=== PATIENT | male | born 1970 | race Caucasian/White ===

== ENCOUNTER → 2016-10-02 | Outpatient (CLI) | payer BC, OTHER ==
[~2016-10-02] MED LIST: EFFSR75 PO; PRLSR20 PO
[2016-10-02 17:47] LABS: BASO % 0.6 %; BASO ABS # 0.05 K/uL (0-0.2); COMPLETE YES; EOS % 1.1 %; HEMATOCRIT 46.8 % (42-52); IG% 0.6 %; LYMPH % 28.4 %; LYMPH ABS # 2.26 K/uL (1.2-3.4); MEAN CELL VOLUME 87.5 fL (80-100); MEAN CORPUSCULAR HEMOGLOBIN 29.2 pg (25-34); MEAN CORPUSCULAR HGB CONC 33.3 g/dl (32-36); MEAN PLATELET VOLUME 11.2 fL (7.4-10.4); MONO % 8.2 %; NEUT % 61.1 %; PLATELET COUNT 185 K/uL (130-400); RED BLOOD COUNT 5.35 M/uL (4.7-6.1); WHITE BLOOD COUNT 7.97 K/uL (4.8-10.8)
[2016-10-02 17:55] LABS: ALT/SGPT 34 U/L (12-78); AST/SGOT 16 U/L (15-37); BLOOD UREA NITROGEN 10 mg/dl (7-18); BUN/CREATININE RATIO 8.9 (10-20); CALCIUM 8.7 mg/dl (8.5-10.1); CARBON DIOXIDE 30 mmol/L (21-32); CHLORIDE 105 mmol/L (98-107); GLUCOSE 111 mg/dl (70-99); POTASSIUM 3.7 mmol/L (3.5-5.1); SODIUM 139 mmol/L (136-145)
[2016-10-02 18:04] LABS: ALB/GLOB RATIO 0.9 (0.9-2); ALKALINE PHOSPHATASE 92 U/L (45-117); CHOLESTEROL 213 mg/dl (0-200); CHOLESTEROL/HDL RATIO 5.2; HDL CHOLESTEROL 41 mg/dl; LDL CHOLESTEROL CALCULATED 121 mg/dl; TRIGLYCERIDES 257 mg/dl (0-150); VERY LOW DENSITY LIPOPROT CALC 51 mg/dl
== END | disposition home or self-care (01) ==
LOC: C.LABMFLN 13:48
PROVIDERS: ATTEND Family Medicine
DX: F32.9 Major depressive disorder, single episode, unspecified (principal); E78.5 Hyperlipidemia, unspecified

== ENCOUNTER 2020-04-07 17:25 | Inpatient (IN) ==
--- NOTE | 2020-04-07 17:55 | Emergency Department Note ---
Impression & Plan Depression with suicidal ideation, Excessive anger ED Provider Note DeliveredProvider: Shady Pittman MD DATE OF SERVICE: 04/07/2020 CHIEF COMPLAINT: Depressed, anger HISTORY OF PRESENT ILLNESS: Patient is a 49-year-old gentleman history of diabetes, hyperlipidemia, depression presenting here today complaining of some worsening depression and anger issues over the past several weeks. Patient is a work his outpatient providers at [facility] regarding this and started last week Topamax. Patient states he has been doing some virtual counseling with them limited secondary to the pandemic. Patient states he lives at home with his and her 2 children 1 of whom is autistic. States children really pushes buttons and he got very angry today and made some verbal threats against them but then felt quite bad about this and had thoughts of wanting to harm himself. Patient describes thoughts of wanting to go and hang himself and thought to be better if he was not around. Came here for help. Patient states he is a history of inpatient psychiatric stays once here and once at [facility] several years ago. Patient states he believes he is in medications readjusted and wishes for inpatient treatment. He denies any significant physical pain at this time. States has not been sleeping the best but has been taking his medicines otherwise. Denies any hallucinations. Denies drug or alcohol use history. He denies a history of physical violence against others. Patient states he has attempted suicide several times in the past. He did not wish to divulge further information regarding this. REVIEW OF SYSTEMS: A total of 10 review of systems was obtained and negative except as stated above in the HPI. PAST MEDICAL HISTORY: As noted above MEDICATIONS: Reviewed home medication SOCIAL HISTORY: Denies drug use. Non-smoker, PHYSICAL EXAM: GENERAL: alert and oriented sitting in chair in room somewhat tearful with mask in place Head: normocephalic and atraumatic EYES: No injection, discharge or icterus. NECK: Trachea midline. LUNGS: Airway patent. No retractions. Breath sounds clear HEART: Regular rate and rhythm. No chest wall tenderness SKIN: Acyanotic, warm, dry, without rashes EXTREMITIES: Without swelling, tenderness or deformity NEUROLOGICAL: No focal deficits. No aphasia. No facial droop or slurred speech Psych: Patient endorses significant depression and is tearful during the exam. Flattened affect. Does states she had thoughts of wanting to harm himself including a plan to possibly hang himself. States in the past he has tried to harm himself but not recently. Patient denies any hallucinations. Patient denies current thoughts of going to harm anybody but states he has verbalized some threats earlier today. Patient's laboratory studies reviewed. Differential includes Mood disorder, infection, hypoglycemia, electrolyte abnormalities, cardiac sources, intracerebral event, toxicologic, trauma, neurologic, as well as other pathologies. IMPRESSION/MEDICAL DECISION MAKING: Patient presents tearful depression with plan to harm himself. Recent anger outburst causing stress. Basic labs were completed. CBC without significant a nemia or leukocytosis. Borderline hyponatremia 135. Hypokalemia of 3.2 and repleted with some oral potassium here. Function. Negative rapid Covid. Negative alcohol level, Tylenol level, and salicylate level. Urinalysis that signs of infection. TSH just above normal but free T4 within normal limits. He is wishing for inpatient treatment and believes he may need medication readjustment. Seen in conjunction with the skilled nursing case manager. Do have concerns regarding his safety with his report of which is to not be alive and plan to hang himself. Referrals for inpatient treatment will be made. Patient currently voluntary but I do believe involuntary grounds exist. Signed out pending bed placement. DIAGNOSIS: Depression with suicidal ideation, anger DISPOSITION: Signed out pending acceptance to inpatient mental health unit Past Med/Surg History Medical History (Updated 04/07/20 @ 17:55 by Shady Pittman M.D.) Acid reflux disease Benign essential hypertension Depression Diabetes mellitus Hyperlipidemia Surgical History History of esophagogastroduodenoscopy (EGD) Family History Sister Asthma Grandfather Diabetes Social History Smoking Status: Never smoker Hx Alcohol Use: Yes Hx Substance Use: No Preferred Language: Swedish Visual Impairment: No Limitations Hearing Ability: Normal marital status: Current Living Situation: Spouse and Family current occupational status: employed Feels Safe at Home: Yes Childhood Exposure to Second-Hand Smoke: Yes Physical Activity Frequency: Daily Seatbelt Use: never Sunscreen Use: Yes Allergies Allergies Allergy/AdvReac Type Severity Reaction Status Date / Time No Known Allergies Allergy Verified 04/07/20 18:04 Home Meds Home Medications Medication Instructions Recorded Confirmed bupropion HCl 300 mg PO DAILY 04/07/20 04/07/20 omeprazole 40 mg PO DAILY 04/07/20 04/07/20 topiramate [Topamax] 25 mg PO DAILY 04/07/20 04/07/20 Previous Rx's Medication Instructions Recorded blood-glucose meter #1 ea 10/11/18 lancets 33 gauge #100 ea 10/11/18 blood sugar diagnostic #100 ea 06/30/19 rosuvastatin 10 mg tablet 10 mg PO HS #90 tab 08/07/19 ropinirole 0.25 mg tablet 0.5 mg PO HS #180 tab 09/12/19 losartan 100 mg tablet 100 mg PO DAILY #90 tab 11/26/19 hydrochlorothiazide 25 mg tablet 25 mg PO DAILY #90 tab 01/31/20 Results & Data (ED) Vital Signs Vital Signs - 24 hr 04/07/20 17:26 04/07/20 19:18 Temperature 36.6 C Temperature Source Temporal Artery Scan Pulse Rate 95 H Pulse Rate [Apical] 89 Pulse Rhythm [Apical] Regular Pulse Strength [Apical] Normal Respiratory Rate 20 15 Respiratory Effort / Characteristics Non-Labored Non-Labored Spontaneous Respiratory Depth Normal Normal Respiratory Pattern Regular Regular Blood Pressure 148/90 H Blood Pressure [Right Arm] 132/92 Blood Pressure Mean 109 Blood Pressure Mean [Right Arm] 105 Blood Pressure Position Sitting Blood Pressure Position [Right Arm] Sitting Pulse Oximetry 94 98 Oxygen Delivery Method Room Air Room Air Sepsis Recent Fever Within 48 Hours No Sepsis New/Unexplained Change in Mental Status No Sepsis Action Taken by Nursing No Action Required Laboratory Data Result diagrams: 04/07/20 18:10 04/07/20 18:10 Lab Results 04/07/20 04/07/20 04/07/20 Range/Units 18:10 18:10 18:10 WBC 9.94 (4.8-10.8) K/uL RBC 5.60 (4.7-6.1) M/uL Hgb 16.2 (14.0-18.0) g/dL Hct 47.5 (42-52) % MCV 84.8 (80-100) fL MCH 28.9 (25-34) pg MCHC 34.1 (32-36) g/dL RDW Std Deviation 42.5 (36.4-46.3) fL RDW Coeff of Obed 13.7 (11.5-14.5) % Plt Count 216 (130-400) K/uL MPV 10.9 H (7.4-10.4) fL Immature Gran % (Auto) 0.2 % Neut % (Auto) 75.9 % Lymph % (Auto) 15.2 % Ulster % (Auto) 7.8 % Eos % (Auto) 0.6 % Baso % (Auto) 0.3 % Neut # (Auto) 7.54 H (1.4-6.5) K/uL Lymph # (Auto) 1.51 (1.2-3.4) K/uL Ulster # (Auto) 0.78 H (0.11-0.59) K/uL Eos # (Auto) 0.06 (0-0.5) K/uL Baso # (Auto) 0.03 (0-0.2) K/uL Immature Gran # (Auto) 0.02 (0.00-0.02) K/uL Sodium 135 L (136-145) mmol/L Potassium 3.2 L (3.5-5.1) mmol/L Chloride 101 (98-107) mmol/L Carbon Dioxide 25 (21-32) mmol/L Anion Gap 9.0 (3-11) BUN 20 H (7-18) mg/dl Creatinine 1.29 (0.6-1.4) mg/dl Est Cr Clr Drug Dosing 101.1 ml/min Est GFR ( Amer) 75.5 Est GFR (Non-Af Amer) 65.1 BUN/Creatinine Ratio 15.5 (10-20) Glucose 130 H (70-99) mg/dl Calcium 9.2 (8.5-10.1) mg/dl Total Bilirubin 0.6 (0.2-1) mg/dl AST 23 (15-37) U/L ALT 35 (12-78) U/L Alkaline Phosphatase 97 (45-117) U/L Total Protein 7.7 (6.4-8.2) gm/dl Albumin 3.8 (3.4-5.0) gm/dl Globulin 3.9 (2.5-4.0) gm/dl Albumin/Globulin Ratio 1.0 (0.9-2) TSH 4.510 H (0.300-4.500) uIu/ml Free T4 0.96 (0.8-1.6) ng/dl Urine Color Urine Appearance (Clear) Urine pH (4.5-7.5) Ur Specific Hammett (1.000-1.030) Urine Protein (Negative) Urine Glucose (UA) (Negative) Urine Ketones (Negative) Urine Blood (Negative) Urine Nitrite (Negative) Urine Bilirubin (Negative) Urine Urobilinogen (Negative) Ur Leukocyte Esterase (Negative) Salicylates < 1.7 L (2.8-20) mg/dl Urine Opiates Screen (Neg) Ur Methadone, Qual (Neg) Acetaminophen < 2 L (10-30) ug/ml Urine Barbiturates (Neg) Ur Phencyclidine (PCP) (Neg) U Amphetamin/Meth Scrn (Neg) MDMA (Ecstasy) Screen (Neg) U Benzodiazepines Scrn (Neg) Ur Cocaine Metabolite (Neg) U Marijuana (THC) Screen (Neg) Ethyl Alcohol mg/dL (0-3) mg/dl SARS-CoV-2 Ag (Rapid) (Negative) 04/07/20 04/07/20 04/07/20 Range/Units 18:10 19:05 19:05 WBC (4.8-10.8) K/uL RBC (4.7-6.1) M/uL Hgb (14.0-18.0) g/dL Hct (42-52) % MCV (80-100) fL MCH (25-34) pg MCHC (32-36) g/dL RDW Std Deviation (36.4-46.3) fL RDW Coeff of Obed (11.5-14.5) % Plt Count (130-400) K/uL MPV (7.4-10.4) fL Immature Gran % (Auto) % Neut % (Auto) % Lymph % (Auto) % Ulster % (Auto) % Eos % (Auto) % Baso % (Auto) % Neut # (Auto) (1.4-6.5) K/uL Lymph # (Auto) (1.2-3.4) K/uL Ulster # (Auto) (0.11-0.59) K/uL Eos # (Auto) (0-0.5) K/uL Baso # (Auto) (0-0.2) K/uL Immature Gran # (Auto) (0.00-0.02) K/uL Sodium (136-145) mmol/L Potassium (3.5-5.1) mmol/L Chloride (98-107) mmol/L Carbon Dioxide (21-32) mmol/L Anion Gap (3-11) BUN (7-18) mg/dl Creatinine (0.6-1.4) mg/dl Est Cr Clr Drug Dosing ml/min Est GFR ( Amer) Est GFR (Non-Af Amer) BUN/Creatinine Ratio (10-20) Glucose (70-99) mg/dl Calcium (8.5-10.1) mg/dl Total Bilirubin (0.2-1) mg/dl AST (15-37) U/L ALT (12-78) U/L Alkaline Phosphatase (45-117) U/L Total Protein (6.4-8.2) gm/dl Albumin (3.4-5.0) gm/dl Globulin (2.5-4.0) gm/dl Albumin/Globulin Ratio (0.9-2) TSH (0.300-4.500) uIu/ml Free T4 (0.8-1.6) ng/dl Urine Color Yellow Urine Appearance Clear (Clear) Urine pH 5.0 (4.5-7.5) Ur Specific Hammett 1.027 (1.000-1.030) Urine Protein Negative (Negative) Urine Glucose (UA) Negative (Negative) Urine Ketones Negative (Negative) Urine Blood Negative (Negative) Urine Nitrite Negative (Negative) Urine Bilirubin Negative (Negative) Urine Urobilinogen Negative (Negative) Ur Leukocyte Esterase Negative (Negative) Salicylates (2.8-20) mg/dl Urine Opiates Screen Neg (Neg) Ur Methadone, Qual Neg (Neg) Acetaminophen (10-30) ug/ml Urine Barbiturates Neg (Neg) Ur Phencyclidine (PCP) Neg (Neg) U Amphetamin/Meth Scrn Neg (Neg) MDMA (Ecstasy) Screen Pos H (Neg) U Benzodiazepines Scrn Neg (Neg) Ur Cocaine Metabolite Neg (Neg) U Marijuana (THC) Screen Neg (Neg) Ethyl Alcohol mg/dL < 3.0 (0-3) mg/dl SARS-CoV-2 Ag (Rapid) (Negative) 04/07/20 Range/Units Unknown WBC (4.8-10.8) K/uL RBC (4.7-6.1) M/uL Hgb (14.0-18.0) g/dL Hct (42-52) % MCV (80-100) fL MCH (25-34) pg MCHC (32-36) g/dL RDW Std Deviation (36.4-46.3) fL RDW Coeff of Obed (11.5-14.5) % Plt Count (130-400) K/uL MPV (7.4-10.4) fL Immature Gran % (Auto) % Neut % (Auto) % Lymph % (Auto) % Ulster % (Auto) % Eos % (Auto) % Baso % (Auto) % Neut # (Auto) (1.4-6.5) K/uL Lymph # (Auto) (1.2-3.4) K/uL Ulster # (Auto) (0.11-0.59) K/uL Eos # (Auto) (0-0.5) K/uL Baso # (Auto) (0-0.2) K/uL Immature Gran # (Auto) (0.00-0.02) K/uL Sodium (136-145) mmol/L Potassium (3.5-5.1) mmol/L Chloride (98-107) mmol/L Carbon Dioxide (21-32) mmol/L Anion Gap (3-11) BUN (7-18) mg/dl Creatinine (0.6-1.4) mg/dl Est Cr Clr Drug Dosing ml/min Est GFR ( Amer) Est GFR (Non-Af Amer) BUN/Creatinine Ratio (10-20) Glucose (70-99) mg/dl Calcium (8.5-10.1) mg/dl Total Bilirubin (0.2-1) mg/dl AST (15-37) U/L ALT (12-78) U/L Alkaline Phosphatase (45-117) U/L Total Protein (6.4-8.2) gm/dl Albumin (3.4-5.0) gm/dl Globulin (2.5-4.0) gm/dl Albumin/Globulin Ratio (0.9-2) TSH (0.300-4.500) uIu/ml Free T4 (0.8-1.6) ng/dl Urine Color Urine Appearance (Clear) Urine pH (4.5-7.5) Ur Specific Hammett (1.000-1.030) Urine Protein (Negative) Urine Glucose (UA) (Negative) Urine Ketones (Negative) Urine Blood (Negative) Urine Nitrite (Negative) Urine Bilirubin (Negative) Urine Urobilinogen (Negative) Ur Leukocyte Esterase (Negative) Salicylates (2.8-20) mg/dl Urine Opiates Screen (Neg) Ur Methadone, Qual (Neg) Acetaminophen (10-30) ug/ml Urine Barbiturates (Neg) Ur Phencyclidine (PCP) (Neg) U Amphetamin/Meth Scrn (Neg) MDMA (Ecstasy) Screen (Neg) U Benzodiazepines Scrn (Neg) Ur Cocaine Metabolite (Neg) U Marijuana (THC) Screen (Neg) Ethyl Alcohol mg/dL (0-3) mg/dl SARS-CoV-2 Ag (Rapid) Negative (Negative) Administered Medications Discontinued Medications Potassium Chloride (Potassium Chloride Crtab 20 Meq Tabcr) 20 meq PO NOW STA Stop: 04/07/20 18:55 Last Admin: 04/07/20 19:08 Dose: 20 meq Documented by: [id number] Discharge Plan Visit Data Chief Complaint: Mental Health Evaluation Stated Complaint: MENTAL HEALTH EVAL - ANGER ED Provider: Shady Pittman Discharge Problem: Depression with suicidal ideation, Excessive anger Forms Stand Alone Forms: [facility], Suicide Prevention Resources Prescriptions Prescriptions: No Action (DME) lancets [OneTouch Delica Plus Lancet] 33 gauge misc See Dose Instructions .ROUTE .MEDSUPPLY Qty: 100 RF: 0 (DME) blood-glucose meter [OneTouch Ultra2 Meter] kit See Dose Instructions .ROUTE .MEDSUPPLY Qty: 1 RF: 0 rosuvastatin 10 mg tablet 10 mg PO HS Qty: 90 RF: 3 ropinirole [Requip] 0.25 mg tablet 0.5 mg PO HS Qty: 180 RF: 1 losartan 100 mg tablet 100 mg PO DAILY Qty: 90 RF: 3 hydrochlorothiazide 25 mg tablet 25 mg PO DAILY Qty: 90 RF: 0 (DME) OneTouch Ultra Blue Test Strip Strip See Dose Instructions .ROUTE .MEDSUPPLY Qty: 100 RF: 3 omeprazole 20 mg capsule,delayed release(DR/EC) 40 mg PO DAILY RF: 0 bupropion HCl 100 mg tablet sustained-release 12 hr 300 mg PO DAILY RF: 0 topiramate [Topamax] 25 mg Tablet 25 mg PO DAILY RF: 0
[2020-04-07 18:21] LABS: Basophils # (auto) 0.03 K/uL (0-0.2); Basophils % (auto) 0.3 %; Eosinophils # (auto) 0.06 K/uL (0-0.5); Eosinophils % (auto) 0.6 %; Hematocrit (blood only) 47.5 % (42-52); Hemoglobin 16.2 g/dL (14.0-18.0); Immature Granulocytes # (auto) 0.02 K/uL (0.00-0.02); Immature Granulocytes % (auto) 0.2 %; Lymphocytes # (auto) 1.51 K/uL (1.2-3.4); Lymphocytes % (auto) 15.2 %; Mean Corpuscular Hemoglobin 28.9 pg (25-34); Mean Corpuscular Hgb Conc 34.1 g/dL (32-36); Mean Corpuscular Volume 84.8 fL (80-100); Mean Platelet Volume 10.9 fL (7.4-10.4); Monocytes # (auto) 0.78 K/uL (0.11-0.59); Monocytes % (auto) 7.8 %; Neutrophils # (auto) 7.54 K/uL (1.4-6.5); Neutrophils % (auto) 75.9 %; Platelet Count 216 K/uL (130-400); RDW Coefficient of Variation 13.7 % (11.5-14.5); RDW Standard Deviation 42.5 fL (36.4-46.3); White Blood Count 9.94 K/uL (4.8-10.8)
[2020-04-07 18:40] LABS: Albumin Level 3.8 gm/dl (3.4-5.0); BUN Creatinine Ratio 15.5 (10-20); Calcium 9.2 mg/dl (8.5-10.1); Creatinine Clr Calc Pharmacy 101.1 ml/min; Est GFR (African American) 75.5; Est GFR (Non-African American) 65.1; Potassium 3.2 mmol/L (3.5-5.1)
[2020-04-07 18:50] LABS: Bilirubin,Total 0.6 mg/dl (0.2-1); Globulin 3.9 gm/dl (2.5-4.0); Thyroid Stimulating Hormone 4.51 uIu/ml (0.300-4.500); Total Protein 7.7 gm/dl (6.4-8.2)
[2020-04-07] MEDS ORDERED: POTASSIUM CHLORIDE CRTAB 20 MEQ TABCR PO STA (18:54)
[2020-04-07 19:03] LABS: T4 Free Thyroxine 0.96 ng/dl (0.8-1.6)
[2020-04-07 19:20] LABS: Salicylate < 1.7 mg/dl (2.8-20)
[2020-04-07 19:21] LABS: Acetaminophen < 2 ug/ml (10-30)
[2020-04-07 19:30] LABS: Appearance Urine Clear (Clear); Bilirubin Urine Negative (Negative); Blood Urine Negative (Negative); Color Urine Yellow; Glucose Urine UA Negative (Negative); Ketones Urine Negative (Negative); Leukocyte Esterase Urine Negative (Negative); Nitrite Urine Negative (Negative); Protein Urine Negative (Negative); Specific Gravity Urine 1.027 (1.000-1.030); Urobilinogen Urine Negative (Negative)
[2020-04-07 19:58] LABS: Amphetamines+Metham, Urine Neg (Neg); Barbiturates, Urine Neg (Neg); Benzodiazepine, Urine Neg (Neg); Cocaine, Urine Neg (Neg); MDMA (Ecstacy), Urine Pos (Neg); Methadone, Urine Neg (Neg); Opiate, Urine Neg (Neg); Phencyclidine, Urine Neg (Neg)
--- NOTE | 2020-04-07 20:36 | Emergency Department Note ---
ED Visit Note 2034: Signout from Dr. Pittman. 49-year-old male presents emergency department for suicidal ideation. Awaiting placement. Medically cleared. 2144:Patient admitted to [facility]. .
[2020-04-07] MEDS ORDERED: hydrOXYzine HCl 25 MG TAB PO PRN ×2 (20:51)
[2020-04-07] MEDS ORDERED: BISMUTH SUBSALICYLATE LIQD 236 ML PO PRN (20:51)
[2020-04-07] MEDS ORDERED: ALUMINUM/MAGNESIUM SUSP 30 ML UDC PO PRN (20:51)
[2020-04-07] MEDS ORDERED: ACETAMINOPHEN 325 MG TAB PO PRN (20:51)
[2020-04-07] MEDS ORDERED: SODIUM CHLORIDE 0.65% NA SOLN 45 ML (OCEAN) PRN (20:51)
[2020-04-07] MEDS ORDERED: MAGNESIUM HYDROXIDE SUSP 30 ML UDC PO PRN (20:51)
[2020-04-07] MEDS ORDERED: ROSUVASTATIN CALCIUM 10 MG TAB PO SCH (22:00)
[2020-04-07] MEDS ORDERED: rOPINIRole HCL 0.25 MG TABLET PO SCH (22:00)
[2020-04-08] MEDS: TRULICITY~ORDER AWAITING ACTION SCH ×2 (00:52→08:11)
[2020-04-08] MEDS ORDERED: NON-FORMULARY MEDICATION (Omeprazole 20 mg capsule,delayed release(DR/EC)) PO SCH (09:00)
[2020-04-08] MEDS: ROSUVASTATIN CALCIUM 10 MG TAB PO SCH (09:02)
[2020-04-08] MEDS: PANTOprazole 40 MG TAB PO SCH (09:02)
[2020-04-08] MEDS: LOSARTAN POTASSIUM 50 MG TAB PO SCH (09:02)
[2020-04-08] MEDS: hydroCHLOROthiazide 25 MG TAB PO SCH (09:02)
[2020-04-08] MEDS: rOPINIRole HCL 0.25 MG TABLET PO SCH (09:02)
[2020-04-08] MEDS: TOPIRAMATE 25 MG TAB PO SCH (09:03)
[2020-04-08] MEDS ORDERED: buPROPion SR 100 MG TABCR PO ONE (12:00)
--- NOTE | 2020-04-08 12:16 | History & Physical ---
Date of Service April 08, 2020 Impression / Recommendations Impression 49 yo male with a history of prior suicidal gestures presents with multiple vegetative symptoms of depression and disrupted sleep with taking Wellbutrin in am on return home from work. He relates significant irritability but endorses no other symptoms suggestive of bipolar depression. (1) Depression with suicidal ideation: The patient was admitted to the [facility] ([facility] unit) on q15 min checks (behavioral with suicide precautions) for safety. The patient will participate in group, recreational, and milieu therapies and will be offered additional individual and family sessions as clinically appropriate. PATRICK for [facility], LM for prescriber to coordinate care. He agreed to start Wellbutrin taper as he only wants to take medication in am before sleep and this may be contributing to sleep fragmentation. 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 Chief Complaint "I've been losing my temper and it makes me feel horrible about myself, like I shouldn't be around". History of Present Illness States that for several weeks he has been more depressed and irritable, not sleeping well. He relates that 8 yo step-son is a "handful" as autistic and won't follow directions. He yelled at him yesterday afternoon and decided to take a drive to calm down at which time he developed suicidal thoughts with a plan to put a belt around his neck. It should be noted that he has done this twice in the past and will hit his head when frustrated. He was seen at [facility] recently and started on topamax in addition to his Wellbutrin. 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 At this point he doesn't feel like anything has been helpful. He does not have a therapist. He notes poor appetite and potassium was low in the ED and was repleted. He continues to feel suicidal. Denies issues at work as doesn't have anger outbursts there. He denies decrease in work performance. He denies history of elevated mood or other behaviors that would suggest royce. He continues to feel hopeless, helpless, and worthless for not being able to control himself. Past Psychiatric History Current Psychiatric Diagnosis: MDD and Anxiety Outpatient Services: Kamlesh at [facility]. Previous Psych Admissions: 2016 [facility], [place] as young adult Do You Have Access To A Gun?: Yes (will need to confirm--had multiple guns last stay with near lethal gesture) History of Previous Suicide Attempt: Yes Describe Attempts in the Past: tied belt around neckX2, Prozac in mouth with gun to head 2016 admit Past Medication Trials: he is not able to recall--2016 H&P relates Paxil was perhaps helpful for a period, Prozac (SI), Effexor XR upon discharge 2015. Wellbutrin "a few months". Allergies Allergy/AdvReac Type Severity Reaction Status Date / Time No Known Allergies Allergy Verified 04/07/20 18:04 Home Medications Medication Instructions Recorded Confirmed Type blood-glucose meter #1 ea 10/11/18 01/31/20 Rx lancets 33 gauge #100 ea 10/11/18 01/31/20 Rx blood sugar diagnostic #100 ea 06/30/19 01/31/20 Rx rosuvastatin 10 mg tablet 10 mg PO HS #90 tab 08/07/19 04/07/20 Rx ropinirole 0.25 mg tablet 0.5 mg PO HS #180 tab 09/12/19 04/07/20 Rx losartan 100 mg tablet 100 mg PO DAILY #90 tab 11/26/19 04/07/20 Rx hydrochlorothiazide 25 mg tablet 25 mg PO DAILY #90 tab 01/31/20 04/07/20 Rx bupropion HCl 200 mg PO DAILY 04/07/20 04/08/20 History dulaglutide [Trulicity] 0.75 mg SUBCUT WK 04/07/20 04/07/20 History omeprazole 40 mg PO DAILY 04/07/20 04/07/20 History topiramate [Topamax] 25 mg PO DAILY 04/07/20 04/07/20 History Family History Family History of: None Alcohol History Hx of Alcohol Use Over the Past 12 Months: No AUDIT Total Score: 0 Smoking Use Have You Smoked or Used Tobacco Products in the Last 30 Days: No Smoking Status: Never smoker Substance History Hx of Prescription Med Misuse Over the Past 12 Months: No Hx of Over the Counter Med Misuse Over the Past 12 Months: No Hx of Inhalent Misuse Over the Past 12 Months: No Hx of Organic Substance Use Over the Past 12 Months: No Hx of Illegal Substances/Street Drug Use Over Past 12 Months: No Problems as a Result of Past Substance Use: None Identified Personal History Living Arrangements: Home (with 2nd and 2 step sons (6 and 8 yo)) Childhood: raised by mother and grandparents, no contact with father, 1 sister Highest Grade Completed: High School Graduate 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 Marital Status: Number Of Children: 2 older adult children, 2 step-children Beliefs That Will Affect Care: None Current Legal Problems: No Hx Legal Problems: No Hx Traumatic Life Events: No Patient History Medical History (Updated 04/07/20 @ 17:55 by Shady Pittman M.D.) Acid reflux disease Benign essential hypertension Depression Diabetes mellitus Hyperlipidemia Surgical History History of esophagogastroduodenoscopy (EGD) Family History Sister Asthma Grandfather Diabetes Social History Smoking Status: Never smoker Hx Alcohol Use: Yes Hx Substance Use: No Preferred Language: Ukrainian Communication Ability: Effective Visual Impairment: No Limitations Hearing Ability: Normal Manager Pe Required: No Beliefs That Will Affect Care: None marital status: Current Living Situation: Spouse and Family current occupational status: employed Feels Safe at Home: Yes Childhood Exposure to Second-Hand Smoke: Yes Physical Activity Frequency: Daily Seatbelt Use: never Sunscreen Use: Yes Assistive Devices: None Review of Systems Review of Systems: All systems reviewed & are unremarkable except as noted in HPI & below Physical Exam Psychiatric: Orientation: alert and cooperative Apperance: appropriately groomed Eye Contact: + poor eye contact Motor Behavior: steady gait and station Speech: normal rate/rhythm/volume of speech Affect: + tearful affect Mood: + depressed mood Thought Process: goal directed thought process Thought Content: reality based without delusions suicidal ideation, denies intent or plan on unit, unable to contract for safety outside of the hospital. Homicidal Thoughts: denies homicidal thoughts Hallucinations: no auditory hallucinations and no visual hallucinations Cognition: recent memory grossly intact, attention grossly intact and language grossly intact Estimated Intelligence: consistent with education level Insight: + limited insight Judgement: + limited judgement Vital Signs (Past 24 Hours): Last Vital Signs Temp 36.8 C 04/08/20 06:30 Pulse 76 04/08/20 06:30 Resp 17 04/08/20 06:30 BP 132/76 04/08/20 06:30 Pulse Ox 95 04/07/20 21:43 Exam Statement: A physical exam was performed in the ED by Dr. Pittman for the purposes of medical clearance. I accept that physical as correct and adequate for the purposes of the inpatient physical exam. Results & Data ([facility]) Laboratory Results Laboratory Results - last 24 hr 04/07/20 04/07/20 04/07/20 18:10 18:10 18:10 WBC 9.94 RBC 5.60 Hgb 16.2 Hct 47.5 MCV 84.8 MCH 28.9 MCHC 34.1 RDW Std Deviation 42.5 RDW Coeff of Obed 13.7 Plt Count 216 MPV 10.9 H Immature Gran % (Auto) 0.2 Neut % (Auto) 75.9 Lymph % (Auto) 15.2 [place] % (Auto) 7.8 Eos % (Auto) 0.6 Baso % (Auto) 0.3 Neut # (Auto) 7.54 H Lymph # (Auto) 1.51 [place] # (Auto) 0.78 H Eos # (Auto) 0.06 Baso # (Auto) 0.03 Immature Gran # (Auto) 0.02 Sodium 135 L Potassium 3.2 L Chloride 101 Carbon Dioxide 25 Anion Gap 9.0 BUN 20 H Creatinine 1.29 Est Cr Clr Drug Dosing 101.1 Est GFR ( Amer) 75.5 Est GFR (Non-Af Amer) 65.1 BUN/Creatinine Ratio 15.5 Glucose 130 H POC Glucose Calcium 9.2 Total Bilirubin 0.6 AST 23 ALT 35 Alkaline Phosphatase 97 Total Protein 7.7 Albumin 3.8 Globulin 3.9 Albumin/Globulin Ratio 1.0 TSH 4.510 H Free T4 0.96 Urine Color Urine Appearance Urine pH Ur Specific Mcleod Urine Protein Urine Glucose (UA) Urine Ketones Urine Blood Urine Nitrite Urine Bilirubin Urine Urobilinogen Ur Leukocyte Esterase Salicylates < 1.7 L Urine Opiates Screen Ur Methadone, Qual Acetaminophen < 2 L Urine Barbiturates Ur Phencyclidine (PCP) U Amphetamin/Meth Scrn Urine MDEA MDMA (Ecstasy) Screen MDMA Urine MDMA U Benzodiazepines Scrn Ur Cocaine Metabolite U Marijuana (THC) Screen Ethyl Alcohol mg/dL SARS-CoV-2 Ag (Rapid) 04/07/20 04/07/20 04/07/20 18:10 19:05 19:05 WBC RBC Hgb Hct MCV MCH MCHC RDW Std Deviation RDW Coeff of Obed Plt Count MPV Immature Gran % (Auto) Neut % (Auto) Lymph % (Auto) [place] % (Auto) Eos % (Auto) Baso % (Auto) Neut # (Auto) Lymph # (Auto) [place] # (Auto) Eos # (Auto) Baso # (Auto) Immature Gran # (Auto) Sodium Potassium Chloride Carbon Dioxide Anion Gap BUN Creatinine Est Cr Clr Drug Dosing Est GFR ( Amer) Est GFR (Non-Af Amer) BUN/Creatinine Ratio Glucose POC Glucose Calcium Total Bilirubin AST ALT Alkaline Phosphatase Total Protein Albumin Globulin Albumin/Globulin Ratio TSH Free T4 Urine Color Yellow Urine Appearance Clear Urine pH 5.0 Ur Specific Mcleod 1.027 Urine Protein Negative Urine Glucose (UA) Negative Urine Ketones Negative Urine Blood Negative Urine Nitrite Negative Urine Bilirubin Negative Urine Urobilinogen Negative Ur Leukocyte Esterase Negative Salicylates Urine Opiates Screen Neg Ur Methadone, Qual Neg Acetaminophen Urine Barbiturates Neg Ur Phencyclidine (PCP) Neg U Amphetamin/Meth Scrn Neg Urine MDEA MDMA (Ecstasy) Screen Pos H MDMA Urine MDMA U Benzodiazepines Scrn Neg Ur Cocaine Metabolite Neg U Marijuana (THC) Screen Neg Ethyl Alcohol mg/dL < 3.0 SARS-CoV-2 Ag (Rapid) 04/07/20 04/07/20 04/08/20 19:05 Unknown 08:06 WBC RBC Hgb Hct MCV MCH MCHC RDW Std Deviation RDW Coeff of Obed Plt Count MPV Immature Gran % (Auto) Neut % (Auto) Lymph % (Auto) [place] % (Auto) Eos % (Auto) Baso % (Auto) Neut # (Auto) Lymph # (Auto) [place] # (Auto) Eos # (Auto) Baso # (Auto) Immature Gran # (Auto) Sodium Potassium Chloride Carbon Dioxide Anion Gap BUN Creatinine Est Cr Clr Drug Dosing Est GFR ( Amer) Est GFR (Non-Af Amer) BUN/Creatinine Ratio Glucose POC Glucose 120 H Calcium Total Bilirubin AST ALT Alkaline Phosphatase Total Protein Albumin Globulin Albumin/Globulin Ratio TSH Free T4 Urine Color Urine Appearance Urine pH Ur Specific Mcleod Urine Protein Urine Glucose (UA) Urine Ketones Urine Blood Urine Nitrite Urine Bilirubin Urine Urobilinogen Ur Leukocyte Esterase Salicylates Urine Opiates Screen Ur Methadone, Qual Acetaminophen Urine Barbiturates Ur Phencyclidine (PCP) U Amphetamin/Meth Scrn Urine MDEA Pending MDMA (Ecstasy) Screen MDMA Pending Urine MDMA Pending U Benzodiazepines Scrn Ur Cocaine Metabolite U Marijuana (THC) Screen Ethyl Alcohol mg/dL SARS-CoV-2 Ag (Rapid) Negative Current Inpatient Medications Current Inpatient Medications: Current Inpatient Medications Acetaminophen (Acetaminophen 325 Mg Tab) 650 mg PO Q4H PRN PRN Reason: Headache or Minor Fever Stop: 05/07/20 20:50 Al Hydrox/Mg Hydrox/Simethicone (Aluminum/Magnesium Susp 30 Ml Udc) 30 ml PO Q4H PRN PRN Reason: GI Upset Stop: 05/07/20 20:50 Bismuth Subsalicylate (Bismuth Subsalicylate Liqd 236 Ml) 15 ml PO PRN PRN PRN Reason: Loose Stool Stop: 05/07/20 20:50 Hydrochlorothiazide (Hydrochlorothiazide 25 Mg Tab) 25 mg PO DAILY [facility] Stop: 05/08/20 08:59 Last Admin: 04/08/20 09:02 Dose: 25 mg Documented by: Hydroxyzine HCl (Hydroxyzine Hcl 25 Mg Tab) 50 mg PO HSZ PRN PRN Reason: Insomnia Stop: 05/07/20 20:50 Hydroxyzine HCl (Hydroxyzine Hcl 25 Mg Tab) 25 mg PO Q4H PRN PRN Reason: Anxiety Stop: 05/07/20 20:50 Losartan Potassium (Losartan Potassium 50 Mg Tab) 100 mg PO DAILY TRIST[facility] Stop: 05/08/20 08:59 Last Admin: 04/08/20 09:02 Dose: 100 mg Documented by: Magnesium Hydroxide (Magnesium Hydroxide Susp 30 Ml Udc) 30 ml PO DAILY PRN PRN Reason: Constipation Stop: 05/07/20 20:50 Miscellaneous (Trulicity~Order Awaiting Action) 1 ea N/A QS [facility] Stop: 05/08/20 00:00 Last Admin: 04/08/20 08:11 Dose: Not Given Documented by: Pantoprazole Sodium (Pantoprazole 40 Mg Tab) 40 mg PO DAILY [facility]ST[facility] Stop: 05/08/20 08:59 Last Admin: 04/08/20 09:02 Dose: 40 mg Documented by: Ropinirole HCl (Ropinirole Hcl 0.25 Mg Tablet) 0.5 mg PO DAILY [facility] Stop: 05/08/20 08:59 Last Admin: 04/08/20 09:02 Dose: 0.5 mg Documented by: Rosuvastatin Calcium (Rosuvastatin Calcium 10 Mg Tab) 10 mg PO QAM [facility] Stop: 05/08/20 08:59 Last Admin: 04/08/20 09:02 Dose: 10 mg Documented by: Sodium Chloride (Sodium Chloride 0.65% Na Soln 45 Ml ([place])) 1 - 2 sprays NA PRN PRN PRN Reason: Nasal Dryness/Congestion Stop: 05/07/20 20:50 Topiramate (Topiramate 25 Mg Tab) 25 mg PO DAILY [facility] Stop: 05/08/20 08:59 Last Admin: 04/08/20 09:03 Dose: 25 mg Documented by:
--- NOTE | 2020-04-08 13:14 | Communication Note ---
Date of Service: April 08, 2020 updated at patient's request ([phone]). She states that his irritability yesterday came as a surprise to her. He hasn't been eating as well since starting Trulicity. She states she can bring NF med if needed. I discouraged [place]. She reports that 9 yo has multiple dx (ADHD, ODD, bipolar and autism). Jose Alberto hasn't been sleeping well though does sleep for several hours later in the day. Initially took Wellbutrin in pm before work, unsure why switched to am (his pm). Reviewed that contacted patient's outpatient provider and am waiting coordination of care as no response to 200 mg Wellbutrin SR should likely switch, particularly as he would like to take meds before he goes to bed. Sounds like he has been on Effexor XR since last hospital stay until switched to Wellbutrin. Reviewed that unlikely related to topamax as low dose. She expressed concerns that he may try to leave prematurely and reviewed 72 hour notice policy to withdraw from care. She states he is currently on FMLA and needs verification of admission faxed to employer.
[2020-04-09] MEDS: TRULICITY~ORDER AWAITING ACTION SCH ×2 (00:26→11:25)
[2020-04-09] MEDS: LOSARTAN POTASSIUM 50 MG TAB PO SCH (07:54)
[2020-04-09] MEDS: TOPIRAMATE 25 MG TAB PO SCH (07:59)
[2020-04-09] MEDS: hydroCHLOROthiazide 25 MG TAB PO SCH (07:59)
[2020-04-09] MEDS: PANTOprazole 40 MG TAB PO SCH (07:59)
[2020-04-09] MEDS: rOPINIRole HCL 0.25 MG TABLET PO SCH (07:59)
[2020-04-09] MEDS: ROSUVASTATIN CALCIUM 10 MG TAB PO SCH (07:59)
--- NOTE | 2020-04-09 09:09 | Psychiatric Progress Note ---
Date of Service April 09, 2020 Impression / Recommendations Impression 49-year-old male admitted voluntarily on 04/07/20 with depression and SI with a verbalized plan to hang himself. Pt has a history of prior suicidal gestures and a psychiatric admission to our unit in 2015. He presented this admission with multiple vegetative symptoms of depression, reported anger outbursts, and disrupted sleep. Pt had been started on Wellbutrin within the past few months and although he feels it has helped his anxiety and depression, he does believe it may be contributing to poor sleep and worsening irritability. He relates significant irritability but endorses no other symptoms suggestive of bipolar depression. Outpatient records were reviewed and medication options were discussed. Pt agreed to a trial of duloxetine to replace the bupropion. He will be encouraged to attend group programming and have a support meeting with his prior to discharge. He will require a referral for outpatient therapy as well. (1) Depression with suicidal ideation: 04/08 The patient was admitted to the [facility] ([facility] mental health unit) on q15 min checks (behavioral with suicide precautions) for safety. The patient will participate in group, recreational, and milieu therapies and will be offered additional individual and family sessions as clinically appropriate. PATRICK for [place], for prescriber to coordinate care. He agreed to start Wellbutrin taper as he only wants to take medication in am before sleep and this may be contributing to sleep fragmentation. 04/09 - Reviewed records from [facility] - patient confirms that Wellbutrin likely contributed to sleep issues and he does feel it may have played a role in worsening irritability/anger. Options for alternative antidepressant medications were reviewed - patient agreed to a trial of duloxetine after discussing risks, benefits, and potential side effects. Will start the medication today with 30mg qAM, and titration as tolerated. - Pt denied SI today, but still appears very depressed and was quite tearful during our interaction - Treatment updates provided to the patient's per patient's request. 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 Chief Complaint "I'm ok." Review of Systems Notes Constitutional: denied Cardiovascular: denied Respiratory: denied Gastrointestinal: denied Neurological: denied Psychiatric: denies symptoms other than stated above Total of at least 10 systems reviewed, pertinent positives as above and in HPI. Sleep Information Total Hours of Sleep: 9.75 Meal Information Percent Meal Consumed - Breakfast: 25 Percent Meal Consumed - Lunch: 100 Percent Meal Consumed - Dinner: 100 Subjective Subjective Patient was seen & assessed and interval progress reviewed with nursing and social work. Staff report the patient has been attending group programming as able, though yesterday he was often engaged with evaluations with staff. He reportedly slept well last evening. Pt was reportedly requesting his morning dose of Wellbutrin, despite conversation with the psychiatrist yesterday discussing that the medication would be discontinued. Pt was seen today to assess progress since admission. Pt reports that he is "Ok." He becomes tearful, almost immediately upon discussing the reasons for admission. He states "I just need my medications straightened out." Pt does admit that suicidal thoughts are not present at the time of this conversation. In reviewing the patient's opinion of recent medication trials, he does admit that Wellbutrin seemed to have contributed to worsening sleep as well as increased irritability. He was willing to discuss alternative agents. Pt was also directed to certain sections of his workbook that focus on stress and anger management. We discussed the importance of a family meeting as well as having an outpatient therapist. Pt states "I don't really like talking too much." We reviewed the importance of behavioral strategies to manage irritability and ang er, and not relying only on medications for these changes. Pt denied other needs or concerns today, but did request that this provider call his to give medication updates. Summary of Past History Outpatient Records from [facility] - Reviewed and Summarized Diagnosis: Major depressive disorder, recurrent, in partial remission Medications: - Topamax 25mg daily (for anger outbursts) - Wellbutrin XL 300mg daily - Vistaril 25mg - 1-2 tabs as needed for sleep 03/27/20 - Medication Check - Pt had reported increased dose of Wellbutrin had been helpful, "he is not getting as angry as quick." Anger outbursts reportedly occurring "a couple x per week" and outbursts are "out of proportion to the stimuli." Pt reported he is eating less and has lost weight. reported anger is "slightly better, but it sis still a problem." Denied SI/HI. - Topamax was initiated at 25mg; Wellbutrin XL was continue at 300mg 02/28/20 - Medication Check - Pt reported "feeling a lot better" and "not feeling as down." Did admit, however, to "getting angry about everything." reported "anger is terrible." Denied SI/HI. - Wellbutrin XL was increased to 300mg. Hydroxyzine added for sleep. 01/17/2020 - Medication Check - Things were alright until "I got this garbage" - referring to having COVID and needing to quarantine. Pt reported "Wellbutrin is good so far." Energy and sleep have been worse, presumed to be due to COVID infection. Denied anger/irritability. reported he was doing well. Denied SI/HI. - No medication changes - continued on Wellbutrin SR 200mg 12/20/2019 - Medication Check - Reported feeling medications needed to "be stronger." No change in anger symptoms. Denied SI/HI. - Wellbutrin SR increased to 200mg; Effexor reduced to 37.5mg x1 week, then to be discontinued. 11/29/2019 - Evaluation - Seen for depressive symptoms - "quite, not talking, mope around." Reported feeling depressed "all my life." Sleep is variable due to working nights. Pt reported needing to call off work a few times due to "anger". He states HR had recommended FMLA due to him calling off 3-4x for this reason, and patient did not want to lose his job. Denied SI/HI. - Past medications: Effexor, Lexapro, Prozac, Paxil (perhaps others). - Diagnosis: major depressive disorder, recurrent, mild - Wellbutrin SR 100mg started, with Effexor being reduced from 150mg to 75mg qAM with plan to taper to discontinuation. Physical Exam Psychiatric Orientation: alert, oriented x 3 and cooperative (superficially ) Apperance: appropriately dressed, appropriately groomed and appeared stated age Eye Contact: + poor eye contact (seemed to be avoiding direct eye contact for most of conversation) Motor Behavior: steady gait and station and no abnormal motor movements Speech: normal rate/rhythm/volume of speech (soft spoken, brief responses to questions) Affect: + depressed affect and + tearful affect; + mood not congruent with affect Mood: no depressed mood ("My mood is fine, I just need something for my anger") Thought Process: goal directed thought process and clear/coherent thought process Thought Content: + cognitive distortions (seeming to imply that his anger is something outside of his control); no hopelessness Suicidal Thoughts: denies suicidal thoughts and denies suicidal intent Homicidal Thoughts: denies homicidal thoughts Hallucinations: no auditory hallucinations and no visual hallucinations Cognition: attention grossly intact and language grossly intact Estimated Intelligence: consistent with education level Insight: + fair insight Judgement: + fair judgement Vital Signs (Past 24 Hours) Last Vital Signs Temp 36.4 C L 04/09/20 06:32 Pulse 76 04/09/20 06:36 Resp 14 04/09/20 06:32 BP 125/81 04/09/20 06:36 Pulse Ox 95 04/07/20 21:43 Results & Data ([facility]) Current Inpatient Medications Current Inpatient Medications: Current Inpatient Medications Acetaminophen (Acetaminophen 325 Mg Tab) 650 mg PO Q4H PRN PRN Reason: Headache or Minor Fever Stop: 05/07/20 20:50 Al Hydrox/Mg Hydrox/Simethicone (Aluminum/Magnesium Susp 30 Ml Udc) 30 ml PO Q4H PRN PRN Reason: GI Upset Stop: 05/07/20 20:50 Bismuth Subsalicylate (Bismuth Subsalicylate Liqd 236 Ml) 15 ml PO PRN PRN PRN Reason: Loose Stool Stop: 05/07/20 20:50 Hydrochlorothiazide (Hydrochlorothiazide 25 Mg Tab) 25 mg PO DAILY [facility]STAN Stop: 05/08/20 08:59 Last Admin: 04/09/20 07:59 Dose: 25 mg Documented by: Hydroxyzine HCl (Hydroxyzine Hcl 25 Mg Tab) 50 mg PO HSZ PRN PRN Reason: Insomnia Stop: 05/07/20 20:50 Hydroxyzine HCl (Hydroxyzine Hcl 25 Mg Tab) 25 mg PO Q4H PRN PRN Reason: Anxiety Stop: 05/07/20 20:50 Losartan Potassium (Losartan Potassium 50 Mg Tab) 100 mg PO DAILY TRISTAN Stop: 05/08/20 08:59 Last Admin: 04/09/20 07:54 Dose: 100 mg Documented by: Magnesium Hydroxide (Magnesium Hydroxide Susp 30 Ml Udc) 30 ml PO DAILY PRN PRN Reason: Constipation Stop: 05/07/20 20:50 Miscellaneous (Trulicity~Order Awaiting Action) 1 ea N/A QS TRISTAN Stop: 05/08/20 00:00 Last Admin: 04/09/20 00:26 Dose: Not Given Documented by: Pantoprazole Sodium (Pantoprazole 40 Mg Tab) 40 mg PO DAILY [facility]ST[facility] Stop: 05/08/20 08:59 Last Admin: 04/09/20 07:59 Dose: 40 mg Documented by: Ropinirole HCl (Ropinirole Hcl 0.25 Mg Tablet) 0.5 mg PO DAILY [facility] Stop: 05/08/20 08:59 Last Admin: 04/09/20 07:59 Dose: 0.5 mg Documented by: Rosuvastatin Calcium (Rosuvastatin Calcium 10 Mg Tab) 10 mg PO QAM TRISTAN Stop: 05/08/20 08:59 Last Admin: 04/09/20 07:59 Dose: 10 mg Documented by: Sodium Chloride (Sodium Chloride 0.65% Na Soln 45 Ml ([place])) 1 - 2 sprays NA PRN PRN PRN Reason: Nasal Dryness/Congestion Stop: 05/07/20 20:50 Topiramate (Topiramate 25 Mg Tab) 25 mg PO DAILY TRISTAN Stop: 05/08/20 08:59 Last Admin: 04/09/20 07:59 Dose: 25 mg Documented by: Mental Health & Subst Abuse Tx Psychiatrist Name of Psychiatrist: David Fisher Psychiatrist's Psychiatric Appointment Comment: [id number] [facility] Post Discharge Appointments Primary Care Physician Name Of Family Doctor: EDIL Ryan Primary Care Provider Appointment Comment: [address] [place] [address], [place] [address] Contact Information Discharge Discharge Address: [address] [facility], [address], [place] [address]
[2020-04-09] MEDS: DULoxetine HCL 30 MG CAP PO SCH (11:26)
[2020-04-10] MEDS: DULoxetine HCL 30 MG CAP PO SCH (08:29)
[2020-04-10] MEDS: PANTOprazole 40 MG TAB PO SCH (08:29)
[2020-04-10] MEDS: hydroCHLOROthiazide 25 MG TAB PO SCH (08:29)
[2020-04-10] MEDS: TOPIRAMATE 25 MG TAB PO SCH (08:29)
[2020-04-10] MEDS: LOSARTAN POTASSIUM 50 MG TAB PO SCH (08:29)
[2020-04-10] MEDS: rOPINIRole HCL 0.25 MG TABLET PO SCH (08:29)
[2020-04-10] MEDS: ROSUVASTATIN CALCIUM 10 MG TAB PO SCH (08:29)
[2020-04-10] MEDS ORDERED: TRULICITY SC SCH (09:00)
--- NOTE | 2020-04-10 09:06 | Psychiatric Progress Note ---
Date of Service April 10, 2020 Impression / Recommendations Impression 49-year-old male admitted voluntarily on 04/07/20 with depression and SI with a plan to hang himself. He reported increased irritability on bupropion, so was switched to duloxetine, which is being titrated. He has been working on coping strategies for his anger, and hasda family meeting with his today. Inpatient treatment remains medically necessary due to the severity of symptoms and risk for suicide if discharged prematurely. (1) Depression with suicidal ideation: 04/08 The patient was admitted to the [facility] ([facility] mental health unit) on q15 min checks (behavioral with suicide precautions) for safety. The patient will participate in group, recreational, and milieu therapies and will be offered additional individual and family sessions as clinically appropriate. PATRICK for [place], LM for prescriber to coordinate care. He agreed to start Wellbutrin taper as he only wants to take medication in am before sleep and this may be contributing to sleep fragmentation. 04/09 - Reviewed records from [facility] - patient confirms that Wellbutrin likely contributed to sleep issues and he does feel it may have played a role in worsening irritability/anger. Options for alternative antidepressant medications were reviewed - patient agreed to a trial of duloxetine after discussing risks, benefits, and potential side effects. Will start the m edication today with 30mg qAM, and titration as tolerated. - Pt denied SI today, but still appears very depressed and was quite tearful during our interaction - Treatment updates provided to the patient's per patient's request. - Refer for outpatient therapy - Schedule family meeting with patient's via phone 04/10 -Continue duloxetine and increase to 60 mg daily tomorrow. Family meeting with today. Referred to N in [place] for outpatient psychiatry and therapy. 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 Chief Complaint "Getting a lot better". Review of Systems Sleep Information Total Hours of Sleep: 6.5 Sleep Comments: pt on q-15 minute checks Meal Information Percent Meal Consumed - Breakfast: 25 Percent Meal Consumed - Lunch: 100 Percent Meal Consumed - Dinner: 100 Subjective Subjective Patient was seen & assessed and interval progress reviewed with treatment team. He met with a counselor and talked about his difficulty managing anger, stating he needs to learn to "walk away" when upset. He talked about his 8-year-old step child who is autistic and has had oppositional and defiant behavior, and has difficulty knowing how to parent him. He also talked about the home he grew up in, where no one talked openly about feelings. On my assessment today he reports mood has improved since admission, and he denies SI. He is tolerating the medication change well and denies side effects. He states his family meeting with his went well, and they talked about ways he can manage his anger. States he needs to work on talking about his emotions more, not letting things build up, and to walk away when he does get angry. He thinks Physical Exam Psychiatric Orientation: alert and cooperative Apperance: appropriately dressed, appropriately groomed and appeared stated age Eye Contact: + fair eye contact Motor Behavior: steady gait and station and no abnormal motor movements Speech: normal rate/rhythm/volume of speech Mildly anxious and depressed, but reactive and appropriate. "Getting a lot better." Thought Process: linear/logical thought process Thought Content: reality based without delusions Suicidal Thoughts: denies suicidal thoughts Homicidal Thoughts: denies homicidal thoughts Hallucinations: no auditory hallucinations and no visual hallucinations Cognition: recent memory grossly intact, attention grossly intact and language grossly intact Estimated Intelligence: average estimated intelligence Insight: + fair insight Judgement: + fair judgement Vital Signs (Past 24 Hours) Last Vital Signs Temp 36.7 C 04/10/20 06:40 Pulse 71 04/10/20 06:41 Resp 18 04/10/20 06:40 BP 125/82 04/10/20 06:41 Pulse Ox 95 04/07/20 21:43 Results & Data ([facility]) Current Inpatient Medications Current Inpatient Medications: Current Inpatient Medications Acetaminophen (Acetaminophen 325 Mg Tab) 650 mg PO Q4H PRN PRN Reason: Headache or Minor Fever Stop: 05/07/20 20:50 Al Hydrox/Mg Hydrox/Simethicone (Aluminum/Magnesium Susp 30 Ml Udc) 30 ml PO Q4H PRN PRN Reason: GI Upset Stop: 05/07/20 20:50 Bismuth Subsalicylate (Bismuth Subsalicylate Liqd 236 Ml) 15 ml PO PRN PRN PRN Reason: Loose Stool Stop: 05/07/20 20:50 Duloxetine HCl (Duloxetine Hcl 30 Mg Cap) 30 mg PO QAM [facility]ST[facility] Stop: 05/09/20 10:44 Last Admin: 04/10/20 08:29 Dose: 30 mg Documented by: Hydrochlorothiazide (Hydrochlorothiazide 25 Mg Tab) 25 mg PO DAILY [facility] Stop: 05/08/20 08:59 Last Admin: 04/10/20 08:29 Dose: 25 mg Documented by: Hydroxyzine HCl (Hydroxyzine Hcl 25 Mg Tab) 50 mg PO HSZ PRN PRN Reason: Insomnia Stop: 05/07/20 20:50 Hydroxyzine HCl (Hydroxyzine Hcl 25 Mg Tab) 25 mg PO Q4H PRN PRN Reason: Anxiety Stop: 05/07/20 20:50 Losartan Potassium (Losartan Potassium 50 Mg Tab) 100 mg PO DAILY [facility] Stop: 05/08/20 08:59 Last Admin: 04/10/20 08:29 Dose: 100 mg Documented by: Magnesium Hydroxide (Magnesium Hydroxide Susp 30 Ml Udc) 30 ml PO DAILY PRN PRN Reason: Constipation Stop: 05/07/20 20:50 Trulicity: Non- Formulary Patient's Own Med 1 ea SC We@0900 TRISTAN Stop: 05/10/20 08:59 Last Admin: 04/10/20 08:40 Dose: 1 ea Documented by: Pantoprazole Sodium (Pantoprazole 40 Mg Tab) 40 mg PO DAILY [facility] Stop: 05/08/20 08:59 Last Admin: 04/10/20 08:29 Dose: 40 mg Documented by: Ropinirole HCl (Ropinirole Hcl 0.25 Mg Tablet) 0.5 mg PO DAILY [facility] Stop: 05/08/20 08:59 Last Admin: 04/10/20 08:29 Dose: 0.5 mg Documented by: Rosuvastatin Calcium (Rosuvastatin Calcium 10 Mg Tab) 10 mg PO QAM [facility]ST[facility] Stop: 05/08/20 08:59 Last Admin: 04/10/20 08:29 Dose: 10 mg Documented by: Sodium Chloride (Sodium Chloride 0.65% Na Soln 45 Ml ([place])) 1 - 2 sprays NA PRN PRN PRN Reason: Nasal Dryness/Congestion Stop: 05/07/20 20:50 Topiramate (Topiramate 25 Mg Tab) 25 mg PO DAILY [facility]ST[facility] Stop: 05/08/20 08:59 Last Admin: 04/10/20 08:29 Dose: 25 mg Documented by: Mental Health & Subst Abuse Tx Psychiatrist Name of Psychiatrist: [facility] Psychiatrist's Date of Appointment with Psychiatrist: 04/18/20 Time of Appointment with Psychiatrist: 1:00pm Psychiatric Appointment Comment: Leonard Herr PA Therapist Name of Therapist: [facility] Therapist's Date of Therapist Appointment: 04/22/20 Time of Therapist Appointment: 1:00pm Therapy Appointment Comment: [facility] Post Discharge Appointments Primary Care Physician Name Of Family Doctor: EDIL Ryan Primary Care Provider Appointment Comment: [address] [place] [id number] Contact Information Discharge Discharge Address: [address] [place] [address], [address], [place] [address]
--- NOTE | 2020-04-11 08:08 | Discharge Summary ---
Date of Service April 11, 2020 History of Present Illness States that for several weeks he has been more depressed and irritable, not sleeping well. He relates that 8 yo step-son is a "handful" as autistic and won't follow directions. He yelled at him yesterday afternoon and decided to take a drive to calm down at which time he developed suicidal thoughts with a plan to put a belt around his neck. It should be noted that he has done this twice in the past and will hit his head when frustrated. He was seen at [facility] recently and started on topamax in addition to his Wellbutrin. 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 At this point he doesn't feel like anything has been helpful. He does not have a therapist. He notes poor appetite and potassium was low in the ED and was repleted. He continues to feel suicidal. Denies issues at work as doesn't have anger outbursts there. He denies decrease in work performance. He denies history of elevated mood or other behaviors that would suggest royce. He continues to feel hopeless, helpless, and worthless for not being able to control himself. Physical Exam Psychiatric Orientation: alert and cooperative Apperance: appropriately dressed, appropriately groomed and appeared stated age Eye Contact: + fair eye contact Motor Behavior: steady gait and station and no abnormal motor movements Speech: normal rate/rhythm/volume of speech Affect: euthymic affect "Good." Thought Process: goal directed thought process Thought Content: reality based without delusions Suicidal Thoughts: denies suicidal thoughts Homicidal Thoughts: denies homicidal thoughts Cognition: recent memory grossly intact, attention grossly intact and language grossly intact Estimated Intelligence: average estimated intelligence Insight: + fair insight Judgement: + fair judgement Vital Signs (Past 24 Hours) Last Vital Signs Temp 36.7 C 04/11/20 06:19 Pulse 79 04/11/20 06:21 Resp 18 04/11/20 06:19 BP 112/76 04/11/20 06:21 Pulse Ox 95 04/07/20 21:43 Principal Diagnosis Major depressive disorder, recurrent, severe without psychosis. Psychiatric Data Patient was hospitalized for 4 days. He was tapered off bupropion due to increased irritability, and started on duloxetine, which he tolerated well. It was titrated to 60 mg daily. He reported improved mood and resolution of suicidal thoughts. He attended and participated in groups and therapy, and processed stressors including parenting an autistic child. He had a family meeting with the social sciences chair and his on 04/10/2020; she was supportive and observed that he seemed to do worse on bupropion, as sleep was impaired and he was more irritable. They discussed his anger outbursts, during which he was tearful and remorseful. They identified healthier ways to cope with anger, including walking away, and working on being able to talk about and communicate his emotions, something that he has never done. They discussed his eamonon's autism, noting they had family based services but were told that his behavior was too severe and needed to improve before they could benefit from those services. The child is not currently in therapy because he did not do well with remote appointments, they are in the process of getting him set up with a new therapist who will see him in person. He was taken out of school due to behaviors so is currently attending remotely from home. His had made a plan that when she is at work, her son will go to her sister's house, so the patient and his stepson will not be alone together. was supportive of discharge the following day and denied safety concerns. She confirmed that there are no guns in the house. Day of Discharge Assessment Patient reports mood has improved, denies suicidal thoughts and thoughts of harming others, and feels less irritable. He is able to identify healthy coping skills and ways to manage anger when it occurs. He is tolerating medication well and denies side effects. He is eating and sleeping well, and performing ADLs independently. He has been referred to [facility] in [place] for both psychiatry and therapy, as it is closer to his home, and this changes been communicated with his previous clinician at [facility]. Transition of Care Transition Of Care Record: was reviewed with the patient Advance Directives Advance Directives Information Provided: Yes Advance Directives: No Mental Health Advance Directive: No Advance Directives on File: No Living Will: No Power of Inspector Publications: No Advance Directives Reason:: Declines as Mental Health Visit. Risk Factors Assessment Respecters mitigated by admission to the inpatient unit, use of medications to target mood symptoms, psychoeducation about his diagnosis and the recommended treatment, participation in groups and therapy, working on healthy coping skills and discharge safety plan, ensuring no access to guns, family meeting with his , referrals for outpatient psychiatry and therapy, discussion of resources for assistance in parenting and autistic child. He is eating and sleeping well, taking medication as prescribed, and consistently denying thoughts to harm himself or others. He is attending to ADLs independently, and has not been aggressive or threatening on the unit. He is no longer at acute risk of harm to himself or others, and is requesting discharge, so can be managed as an outpatient at this time. 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 Relationships: Yes Supportive Family: Yes Tobacco Cessation at Discharge Tobacco Cessation Medication Prescribed at Discharge: Not Applicable/Non-Smoker Total Time Total Time Spent: Greater Than 30 Minutes Total Time Includes: Examination of the patient, Discharge Planning and Medication Reconciliation Discharge Data Lab Results 04/07/20 04/07/20 04/07/20 18:10 18:10 18:10 WBC 9.94 RBC 5.60 Hgb 16.2 Hct 47.5 MCV 84.8 MCH 28.9 MCHC 34.1 RDW Std Deviation 42.5 RDW Coeff of Obed 13.7 Plt Count 216 MPV 10.9 H Immature Gran % (Auto) 0.2 Neut % (Auto) 75.9 Lymph % (Auto) 15.2 Murray % (Auto) 7.8 Eos % (Auto) 0.6 Baso % (Auto) 0.3 Neut # (Auto) 7.54 H Lymph # (Auto) 1.51 Murray # (Auto) 0.78 H Eos # (Auto) 0.06 Baso # (Auto) 0.03 Immature Gran # (Auto) 0.02 Sodium 135 L Potassium 3.2 L Chloride 101 Carbon Dioxide 25 Anion Gap 9.0 BUN 20 H Creatinine 1.29 Est Cr Clr Drug Dosing 101.1 Est GFR ( Amer) 75.5 Est GFR (Non-Af Amer) 65.1 BUN/Creatinine Ratio 15.5 Glucose 130 H POC Glucose Calcium 9.2 Total Bilirubin 0.6 AST 23 ALT 35 Alkaline Phosphatase 97 Total Protein 7.7 Albumin 3.8 Globulin 3.9 Albumin/Globulin Ratio 1.0 TSH 4.510 H Free T4 0.96 Urine Color Urine Appearance Urine pH Ur Specific Windsor Urine Protein Urine Glucose (UA) Urine Ketones Urine Blood Urine Nitrite Urine Bilirubin Urine Urobilinogen Ur Leukocyte Esterase Salicylates < 1.7 L Urine Opiates Screen Ur Methadone, Qual Acetaminophen < 2 L Urine Barbiturates Ur Phencyclidine (PCP) U Amphetamin/Meth Scrn MDMA (Ecstasy) Screen U Benzodiazepines Scrn Ur Cocaine Metabolite U Marijuana (THC) Screen Ethyl Alcohol mg/dL SARS-CoV-2 Ag (Rapid) 04/07/20 04/07/20 04/07/20 18:10 19:05 19:05 WBC RBC Hgb Hct MCV MCH MCHC RDW Std Deviation RDW Coeff of Obed Plt Count MPV Immature Gran % (Auto) Neut % (Auto) Lymph % (Auto) Murray % (Auto) Eos % (Auto) Baso % (Auto) Neut # (Auto) Lymph # (Auto) Murray # (Auto) Eos # (Auto) Baso # (Auto) Immature Gran # (Auto) Sodium Potassium Chloride Carbon Dioxide Anion Gap BUN Creatinine Est Cr Clr Drug Dosing Est GFR ( Amer) Est GFR (Non-Af Amer) BUN/Creatinine Ratio Glucose POC Glucose Calcium Total Bilirubin AST ALT Alkaline Phosphatase Total Protein Albumin Globulin Albumin/Globulin Ratio TSH Free T4 Urine Color Yellow Urine Appearance Clear Urine pH 5.0 Ur Specific Windsor 1.027 Urine Protein Negative Urine Glucose (UA) Negative Urine Ketones Negative Urine Blood Negative Urine Nitrite Negative Urine Bilirubin Negative Urine Urobilinogen Negative Ur Leukocyte Esterase Negative Salicylates Urine Opiates Screen Neg Ur Methadone, Qual Neg Acetaminophen Urine Barbiturates Neg Ur Phencyclidine (PCP) Neg U Amphetamin/Meth Scrn Neg MDMA (Ecstasy) Screen Pos H U Benzodiazepines Scrn Neg Ur Cocaine Metabolite Neg U Marijuana (THC) Screen Neg Ethyl Alcohol mg/dL < 3.0 SARS-CoV-2 Ag (Rapid) 04/07/20 04/08/20 Unknown 08:06 WBC RBC Hgb Hct MCV MCH MCHC RDW Std Deviation RDW Coeff of Obed Plt Count MPV Immature Gran % (Auto) Neut % (Auto) Lymph % (Auto) Murray % (Auto) Eos % (Auto) Baso % (Auto) Neut # (Auto) Lymph # (Auto) Murray # (Auto) Eos # (Auto) Baso # (Auto) Immature Gran # (Auto) Sodium Potassium Chloride Carbon Dioxide Anion Gap BUN Creatinine Est Cr Clr Drug Dosing Est GFR ( Amer) Est GFR (Non-Af Amer) BUN/Creatinine Ratio Glucose POC Glucose 120 H Calcium Total Bilirubin AST ALT Alkaline Phosphatase Total Protein Albumin Globulin Albumin/Globulin Ratio TSH Free T4 Urine Color Urine Appearance Urine pH Ur Specific Windsor Urine Protein Urine Glucose (UA) Urine Ketones Urine Blood Urine Nitrite Urine Bilirubin Urine Urobilinogen Ur Leukocyte Esterase Salicylates Urine Opiates Screen Ur Methadone, Qual Acetaminophen Urine Barbiturates Ur Phencyclidine (PCP) U Amphetamin/Meth Scrn MDMA (Ecstasy) Screen U Benzodiazepines Scrn Ur Cocaine Metabolite U Marijuana (THC) Screen Ethyl Alcohol mg/dL SARS-CoV-2 Ag (Rapid) Negative Hospital Course (1) Depression with suicidal ideation: 04/08 The patient was admitted to the [facility]) on q15 min checks (behavioral with suicide precautions) for safety. The patient will participate in group, recreational, and milieu therapies and will be offered additional individual and family sessions as clinically appropriate. [facility] for [facility], for prescriber to coordinate care. He agreed to start Wellbutrin taper as he only wants to take medication in am before sleep and this may be contributing to sleep fragmentation. 04/09 - Reviewed records from [facility] - patient confirms that Wellbutrin likely contributed to sleep issues and he does feel it may have played a role in worsening irritability/anger. Options for alternative antidepressant medications were reviewed - patient agreed to a trial of duloxetine after discussing risks, benefits, and potential side effects. Will start the medication today with 30mg qAM, and titration as tolerated. - Pt denied SI today, but still appears very depressed and was quite tearful during our interaction - Treatment updates provided to the patient's per patient's request. - Refer for outpatient therapy - Schedule family meeting with patient's via phone 04/10 -Continue duloxetine and increase to 60 mg daily tomorrow. Family meeting with today. Referred to [facility] in [place] for outpatient psychiatry and therapy. 04/11 -Discharge to home, Rx issued for duloxetine for #30 day supply. -Followup at [facility] with psychiatry 04/18, and therapist 04/22. Mental Health & Subst Abuse Tx Psychiatrist Name of Psychiatrist: [facility] Psychiatrist's Date of Appointment with Psychiatrist: 04/18/20 Time of Appointment with Psychiatrist: 1:00pm Psychiatric Appointment Comment: [address] [place] Therapist Name of Therapist: [facility] Therapist's Date of Therapist Appointment: 04/22/20 Time of Therapist Appointment: 1:00pm Therapy Appointment Comment: [address] [facility] Post Discharge Appointments Primary Care Physician Name Of Family Doctor: EDIL Ryan [facility] Time of Appointment with PCP: Please follow up as needed Provider Appointment Comment: [address] [place] [id number] Smoking Cessation Counseling Tobacco Cessation Medication Prescribed at Discharge: Not Applicable/Non-Smoker Contact Information Discharge Discharge Address: [address] [place] [address], [place] [address] Discharge Plan Discharge Items Patient Disposition: Home - Self-Care Reason For Visit: MDR Discharge Diagnosis: Major depressive disorder Activity: Per Instructions section Non-emergency contact: Psychiatrist and Therapist Call non-emergency contact if: you have any medication questions and your symptoms worsen Follow-up/Referrals: Marjorie Ryan MD [Primary Care Provider] - Diet: Regular Addtl Attending Provider Instructions: SPECIAL CARE INSTRUCTIONS: 1. Follow through with your scheduled aftercare appointments. If unable to keep an appointment, please call to reschedule. 2. Take your medication only as prescribed. Medication should not be changed or stopped without the approval of your doctor. In the event of worsening symptoms or concerns about side effects, contact your doctor immediately. 3. Utilize new healthy coping skills, anger management skills, and stress management skills learned during your hospitalization. Journal feelings and process them with a support person. Identify stressors or situations that may result in relapse, deterioration or inappropriate behaviors and develop a plan to deal with those issues. 4. If your coping skills are ineffective and you are in crisis, contact your outpatient providers for direction. If unable to reach your providers, please call the [facility] CRISIS LINE AT , go to the [facility] walk-in center at [address], [address], [place], or go to the closest Emergency Room. 5. Avoid alcohol and un-prescribed drugs. 6. You have been provided with the Mental Health Advance Directives Pamphlet for your review. AFTERCARE APPOINTMENTS: * Please call your insurance company prior to your scheduled appointment to confirm your aftercare providers are covered. Take your insurance information to your appointments. WHO TO CALL AND WHEN: Medical Emergencies: For questions or emergencies related to your hospital stay, please contact the Inpatient Behavioral Health Unit at [phone]. A edge polisher is on-call 07/09 for the Behavioral Health Unit for emergencies At any time you feel your situation is an emergency, you may also call 911 immediately. Pending Studies at Discharge: No Stand-Alone Forms: My [facility], Smoking Cessation Medications and DC Order Prescriptions: New duloxetine 60 mg Capsule,Delayed Release(Dr/Ec) 60 mg PO QAM Qty: 30 RF: 0 Continued (DME) lancets [OneTouch Delica Plus Lancet] 33 gauge misc See Dose Instructions .ROUTE .MEDSUPPLY Qty: 100 RF: 0 (DME) blood-glucose meter [OneTouch Ultra2 Meter] kit See Dose Instructions .ROUTE .MEDSUPPLY Qty: 1 RF: 0 rosuvastatin 10 mg tablet 10 mg PO HS Qty: 90 RF: 3 ropinirole [Requip] 0.25 mg tablet 0.5 mg PO HS Qty: 180 RF: 1 losartan 100 mg tablet 100 mg PO DAILY Qty: 90 RF: 3 hydrochlorothiazide 25 mg tablet 25 mg PO DAILY Qty: 90 RF: 0 (DME) OneTouch Ultra Blue Test Strip Strip See Dose Instructions .ROUTE .MEDSUPPLY Qty: 100 RF: 3 omeprazole 20 mg capsule,delayed release(DR/EC) 40 mg PO DAILY RF: 0 topiramate [Topamax] 25 mg Tablet 25 mg PO DAILY RF: 0 Trulicity 0.75 mg/0.5 mL pen injector 0.75 mg SUBCUT WK RF: 0 Discontinued bupropion HCl 300 mg tablet extended release 24 hr 300 mg PO DAILY RF: 0 Discharge Orders: Discharge Order (Routine); Ordered 04/11/20 Ordered By: Sanjana Sampson Admission Data Admit Date/Time: 04/07/20 20:33 Attending Provider: Latoya Parker Admit Provider: Latoya Parker Primary Care Provider: Marjorie Ryan Other Interventions: PSY Interdisciplinary Discharge Planning Last Done: 04/11/20 07:49 Coding Level of Care Code 47494 D/C day mgmt > 30 min Diagnoses Depression with suicidal ideation F32.9; R45.851
[2020-04-11] MEDS: TOPIRAMATE 25 MG TAB PO SCH (08:33)
[2020-04-11] MEDS: LOSARTAN POTASSIUM 50 MG TAB PO SCH (08:33)
[2020-04-11] MEDS: ROSUVASTATIN CALCIUM 10 MG TAB PO SCH (08:34)
[2020-04-11] MEDS: PANTOprazole 40 MG TAB PO SCH (08:34)
[2020-04-11] MEDS: rOPINIRole HCL 0.25 MG TABLET PO SCH (08:34)
[2020-04-11] MEDS: hydroCHLOROthiazide 25 MG TAB PO SCH (08:34)
[2020-04-11] MEDS ORDERED: DULoxetine HCL 60 MG CAP PO SCH (09:00)
[2020-04-11 09:32] LABS: MDA negative; MDEA negative; MDMA (Ecstasy) Urine, Confirm negative
== END 2020-04-11 11:56 | disposition home or self-care (01) | DRG 885 ==
LOC: ED 17:25 → 3S 20:33